=== PATIENT | male | born 1985 | race Two or more races ===

== ENCOUNTER 2023-02-02 00:17 | Emergency (ER) | payer OTHER ==
[~2023-02-02] VITALS: Ht 182.9 cm; Wt 117.9 kg
[2023-02-02] MEDS ORDERED: LIPITOR40 MG PO (00:32)
[2023-02-02] MEDS ORDERED: KAPSPARGO SPRIN25 MG PO (00:32)
[2023-02-02] MEDS ORDERED: KETO10TA2 PO (05:27)
[2023-02-02] MEDS ORDERED: AMOX-CLAV 875-1 EAC1 PO (05:27)
== END 2023-02-02 05:31 ==
LOC: ER 00:17
DX: S01.512A Laceration without foreign body of oral cavity, initial encounter (principal); S29.8XXA Other specified injuries of thorax, initial encounter; W18.39XA Other fall on same level, initial encounter; Y93.55 Activity, bike riding; Y92.89 Other specified places as the place of occurrence of the external cause; Y99.8 Other external cause status; I10 Essential (primary) hypertension